=== PATIENT | female | born 1970 | race Caucasian/White ===

== ENCOUNTER 2017-03-19 10:39 | Emergency (ER) | payer OTHER ==
[2017-03-19] MEDS ORDERED: IV NORMAL SALINE 1,000ML 1,000 ML IV SCH (11:08)
[2017-03-19] MEDS ORDERED: IOHEXOL 300 MG/ML 75 ML VIAL. IV ONE ×2 (11:15→11:30)
[2017-03-19 11:27] LABS: BASO % 0 % (0-3); EOS # 0.2 x10^3/uL (0.0-0.7); EOS % 2 % (0-3); HEMATOCRIT 36.4 % (36.0-47.0); HEMOGLOBIN 12.4 g/dL (12.0-15.5); LYMPH # 1.2 x10^3/uL (1.0-4.8); LYMPH % 10 % (24-48); MEAN CORPUSCULAR HEMOGLOBIN 31 pg (25-35); MEAN CORPUSCULAR HGB CONC 34 g/dL (31-37); MEAN CORPUSCULAR VOLUME 90 fL (79-100); MONO # 1.2 x10^3/uL (0.0-1.1); MONO % 10 % (0-9); NEUT # 9.3 x10^3uL (1.8-7.7); NEUT % 78 % (31-73); PLATELET COUNT 195 x10^3/uL (140-400); RED BLOOD COUNT 4.04 x10^6/uL (3.50-5.40); RED CELL DISTRIBUTION WIDTH 13.7 % (11.5-14.5); WHITE BLOOD COUNT 11.9 x10^3/uL (4.0-11.0)
[2017-03-19] MEDS ORDERED: IV NORMAL SALINE 50ML 50 ML ONE (11:33)
[2017-03-19] MEDS ORDERED: cefTRIAXone SODIUM 1 GM VIAL IV ONE (11:34)
[2017-03-19 11:43] LABS: ALBUMIN 3.5 g/dL (3.4-5.0); ALBUMIN/GLOBULIN RATIO 0.8 (1.0-1.7); CALCIUM 9.2 mg/dL (8.5-10.1); CREATININE 0.8 mg/dL (0.6-1.0); GFR 76.9; POTASSIUM 3.2 mmol/L (3.5-5.1); TOTAL BILIRUBIN 0.3 mg/dL (0.2-1.0)
[2017-03-19] MEDS ORDERED: methylPREDNISolone SOD SUCC PF 125 MG/2 ML VIAL. IV ONE (11:45)
[2017-03-19 12:15] VITALS: BP 156/74
[2017-03-19] MEDS ORDERED: KETOROLAC 30 MG/ML VIAL. IV ONE (12:15)
--- NOTE | 2017-03-19 12:26 | RAD ---
Indication: Right facial cellulitis with concern for abscess. Technique: Axial images and coronal and sagittal reformatted images are provided. 75 mL of intravenous Omnipaque 300 was administered without complication. No comparison is available. One or more of the following individualized dose reduction techniques were utilized for this examination: 1. Automated exposure control 2. Adjustment of the mA and/or kV according to patient size 3. Use of iterative reconstruction technique Findings: There is soft tissue stranding throughout the superficial space on the right with thickening of the platysma. There is no rim-enhancing fluid collection. There is more focal stranding anterior to the right maxilla which could represent phlegmonous change. There is no gross bone destruction. There is no definite preseptal extension. There is no orbital extension. There is right maxillary mild mucosal thickening. There is no maxillofacial fracture. Impression: 1. Right facial cellulitis. No abscess is apparent although there is a potential area of phlegmonous change anterior to the right maxilla. There is no gross bone destruction or orbital extension.
--- NOTE | 2017-03-19 12:55 | PHYS DOC ---
Past History Past Medical History: Anxiety, High Cholesterol, Hypertension Past Surgical History: Appendectomy, Cervical Fusion, Hysterectomy, Other Alcohol Use: None Drug Use: None Adult General Chief Complaint Chief Complaint: DENTAL PROBLEM HPI HPI 46-year-old female patient states she had right upper jaw and dental pain that started 5 days ago and for the last 4 days she had right-sided facial edema and erythema. Patient states she was seen at [facility] 3 days ago and with the dentist the same day and treated with clindamycin and penicillin and pain medication but her swelling is not getting better and she wanted to get a second opinion. Patient complaining of subjective fever and increasing pain with chewing and talking. Patient has appointment with oral surgeon tomorrow. She denies focal neuro deficit, vomiting and diarrhea, smoking. Review of Systems Review of Systems Constitutional: Denies fever or chills [] Eyes: Denies change in visual acuity, redness, or eye pain [] HENT: Denies nasal congestion or sore throat [] Respiratory: Denies cough or shortness of breath [] Cardiovascular: No additional information not addressed in HPI [] GI: Denies abdominal pain, nausea, vomiting, bloody stools or diarrhea [] : Denies dysuria or hematuria [] Musculoskeletal: Denies back pain or joint pain [] Integument: Denies rash or skin lesions [] Neurologic: Denies headache, focal weakness or sensory changes [] Endocrine: Denies polyuria or polydipsia [] All other systems were reviewed and found to be within normal limits, except as documented in this note. Current Medications Current Medications Current Medications Medications (Trade) Dose Ordered Sig/Estiven Start Time Stop Time Status Last Admin Dose Admin Ceftriaxone Sodium 1 gm/ Sodium Chloride 50 ml @ 100 mls/hr 1X ONCE 03/19/17 11:45 03/19/17 12:14 DC 03/19/17 11:43 100 MLS/HR Ceftriaxone Sodium (Rocephin) 1 gm STK-MED ONCE 03/19/17 11:34 03/19/17 11:35 DC Iohexol (Omnipaque 300 Mg/ml) 75 ml 1X ONCE 03/19/17 11:30 03/19/17 11:31 DC 03/19/17 12:10 75 ML Ketorolac Tromethamine (Toradol) 30 mg 1X ONCE 03/19/17 12:15 03/19/17 12:16 DC 12/13/17 12:00 30 MG Methylprednisolone Sodium Succinate (SOLU-Medrol 125MG VIAL) 125 mg 1X ONCE 03/19/17 11:45 03/19/17 11:46 DC 03/19/17 11:42 125 MG Sodium Chloride 50 ml @ As Directed STK-MED ONCE 03/19/17 11:33 03/19/17 11:34 DC Allergies Allergies Allergies Coded Allergies Type Severity Reaction Last Updated Verified Latex, Natural Rubber Allergy Unknown 04/26/15 Yes Physical Exam Physical Exam Constitutional: Well developed, well nourished, mild distress, non-toxic appearance. [] HENT: Normocephalic, atraumatic, bilateral external ears normal, oropharynx moist, no oral exudates, nose normal, right facial and preorbital erythema and edema and mild tenderness, right upper jaw and molar #3 tenderness and abscess Neck: Normal range of motion, no tenderness, supple, no stridor. [] Cardiovascular:Heart rate regular rhythm, no murmur [] Lungs & Thorax: Bilateral breath sounds clear to auscultation [] Abdomen: Bowel sounds normal, soft, no tenderness, no masses, no pulsatile masses. [] Skin: Warm, dry, no erythema, no rash. [] Back: No tenderness, no CVA tenderness. [] Extremities: No tenderness, no cyanosis, no clubbing, ROM intact, no edema. [] Neurologic: Alert and oriented X 3, normal motor function, normal sensory function, no focal deficits noted. [] Psychologic: Affect normal, judgement normal, mood normal. [] Current Patient Data Vital Signs Vital Signs Date Time Temp Pulse Resp B/P (MAP) Pulse Ox O2 Delivery O2 Flow Rate FiO2 03/19/17 12:15 85 20 95 03/19/17 10:39 100.2 Room Air Lab Results Laboratory Tests Test 03/19/17 11:15 White Blood Count 11.9 x10^3/uL (4.0-11.0) H Red Blood Count 4.04 x10^6/uL (3.50-5.40) Hemoglobin 12.4 g/dL (12.0-15.5) Hematocrit 36.4 % (36.0-47.0) Mean Corpuscular Volume 90 fL (79-100) Mean Corpuscular Hemoglobin 31 pg (25-35) Mean Corpuscular Hemoglobin Concent 34 g/dL (31-37) Red Cell Distribution Width 13.7 % (11.5-14.5) Platelet Count 195 x10^3/uL (140-400) Neutrophils (%) (Auto) 78 % (31-73) H Lymphocytes (%) (Auto) 10 % (24-48) L Monocytes (%) (Auto) 10 % (0-9) H Eosinophils (%) (Auto) 2 % (0-3) Basophils (%) (Auto) 0 % (0-3) Neutrophils # (Auto) 9.3 x10^3uL (1.8-7.7) H Lymphocytes # (Auto) 1.2 x10^3/uL (1.0-4.8) Monocytes # (Auto) 1.2 x10^3/uL (0.0-1.1) H Eosinophils # (Auto) 0.2 x10^3/uL (0.0-0.7) Basophils # (Auto) 0.0 x10^3/uL (0.0-0.2) Prothrombin Time 10.0 SEC (9.4-11.4) Prothrombin Time INR 1.0 (0.9-1.1) Sodium Level 138 mmol/L (136-145) Potassium Level 3.2 mmol/L (3.5-5.1) L Chloride Level 98 mmol/L (98-107) Carbon Dioxide Level 30 mmol/L (21-32) Anion Gap 10 (6-14) Blood Urea Nitrogen 10 mg/dL (7-20) Creatinine 0.8 mg/dL (0.6-1.0) Estimated GFR (Cockcroft-Gault) 76.9 BUN/Creatinine Ratio 13 (6-20) Glucose Level 184 mg/dL (70-99) H Lactic Acid Level 1.3 mmol/L (0.4-2.0) Calcium Level 9.2 mg/dL (8.5-10.1) Total Bilirubin 0.3 mg/dL (0.2-1.0) Aspartate Amino Transferase (AST) 29 U/L (15-37) Alanine Aminotransferase (ALT) 45 U/L (14-59) Alkaline Phosphatase 106 U/L (46-116) Total Protein 8.0 g/dL (6.4-8.2) Albumin 3.5 g/dL (3.4-5.0) Albumin/Globulin Ratio 0.8 (1.0-1.7) L EKG EKG [] Radiology/Procedures Radiology/Procedures [] Course & Med Decision Making Course & Med Decision Making Pertinent Labs and Imaging studies reviewed. (See chart for details) Evaluation of patient in ER showed 46-year-old female patient with dental abscess and facial cellulitis with unremarkable CT of face and labs except for potassium of 3.2. She and treated with IV fluids, Solu-Medrol, Toradol and Rocephin and felt better. Patient struck to follow up with her appointment with oral surgeon tomorrow and continue home medication. [] Dragon Disclaimer Dragon Disclaimer This electronic medical record was generated, in whole or in part, using a voice recognition dictation system. Departure Departure: Impression: Primary Impression: Facial cellulitis Additional Impressions: Dental abscess Hypokalemia Uncontrolled diabetes mellitus Disposition: 01 HOME, SELF-CARE (At 1253) Condition: IMPROVED Referrals: LAL[facility] (PCP) Patient Instructions: Dental Abscess, Hypokalemia, Periorbital Cellulitis Additional Instructions: Continue her current home medication Follow-up with your dentist appointment tomorrow Problem Qualifiers MARIBELL NOLAN MD Mar 19, 2017 12:54
== END 2017-03-19 13:00 | disposition home or self-care (01) ==
LOC: ER 10:39
DX: K04.7 Periapical abscess without sinus (principal); L03.211 Cellulitis of face; E87.6 Hypokalemia; E11.9 Type 2 diabetes mellitus without complications; E78.00 Pure hypercholesterolemia, unspecified; I10 Essential (primary) hypertension; F41.9 Anxiety disorder, unspecified; Z91.040 Latex allergy status
CPT/HCPCS: 36415; 70487; 80053; 83605; 85025; 85610; 96365; 96375; 99285; J0696; J1885; J2930; Q9967; J7030

== ENCOUNTER 2017-05-20 21:08 | Emergency (ER) | payer OTHER ==
[~2017-05-20] VITALS: Ht 160 cm; Wt 83.9 kg
--- NOTE | 2017-05-20 21:12 | ED.ADGEN ---
Past History Past Medical History: Anxiety, High Cholesterol, Hypertension Past Surgical History: Appendectomy, Cervical Fusion, Hysterectomy, Other Alcohol Use: None Drug Use: None Adult General Chief Complaint Chief Complaint ".. I got bad cold ... I ve had it weeks now.. I was seen at [facility].. the checked the flu.. and it was negative... but did not check a strept...." HPI HPI Patient is a 46 year old female who presents with above hx and complaints of myalgia, arthralgia, pharyngitis, malaise and coughing. No recent travel. No specific ill contacts. Normally follows at [facility]. Was checked for fluid [facility] which was reportedly negative. Review of Systems Review of Systems Constitutional: Complaints of fever or chills [] Eyes: Denies change in visual acuity, redness, or eye pain [] HENT: Complaints of nasal congestion and sore throat [] Respiratory: Complaints cough and wheezing Cardiovascular: No additional information not addressed in HPI [] GI: Denies abdominal pain, nausea, vomiting, bloody stools or diarrhea [] : Denies dysuria or hematuria [] Musculoskeletal: Denies back pain or joint pain [] Integument: Denies rash or skin lesions [] Neurologic: Denies headache, focal weakness or sensory changes [] Endocrine: Denies polyuria or polydipsia [] All other systems were reviewed and found to be within normal limits, except as documented in this note. Family History Family History Noncontributory Current Medications Current Medications Current Medications Medications (Trade) Dose Ordered Sig/Estiven Start Time Stop Time Status Last Admin Dose Admin Albuterol Sulfate (Ventolin Hfa) 2 puff 1X ONCE 05/20/17 22:30 05/20/17 22:31 DC 05/20/17 22:30 2 PUFF Prednisone (Prednisone) 50 mg 1X ONCE 05/20/17 22:15 05/20/17 22:16 DC 05/20/17 22:35 50 MG See nursing for home meds Allergies Allergies Allergies Coded Allergies Type Severity Reaction Last Updated Verified Latex, Natural Rubber Allergy Unknown 04/26/15 Yes Physical Exam Physical Exam Constitutional: no acute distress, non-toxic appearance. [] HENT: Normocephalic, atraumatic, bilateral external ears normal, oropharynx moist, active pharynx, no oral exudates, nose swollen turbinates and rhinorrhea Eyes: PERRLA, EOMI, conjunctiva normal, no discharge. [] Neck: Normal range of motion, no tenderness, supple, no stridor. Surgical scar Cardiovascular:Heart rate regular rhythm, no murmur [] Lungs & Thorax: Bilateral breath sounds equal few scattered wheezes on auscultation [] Abdomen: Bowel sounds normal, soft, no tenderness, no masses, no pulsatile masses. [Obese. Old surgical scars Skin: Warm, dry, no erythema, no rash. [] Back: No tenderness, no CVA tenderness. [] Extremities: No tenderness, no cyanosis, no clubbing, ROM intact, no edema. [] Neurologic: Alert and oriented X 3, normal motor function, normal sensory function, no focal deficits noted. [] Psychologic: Affect anxious, judgement normal, mood normal. [] Current Patient Data Vital Signs Vital Signs Date Time Temp Pulse Resp B/P (MAP) Pulse Ox O2 Delivery O2 Flow Rate FiO2 05/20/17 23:06 80 18 145/78 (100) 98 Room Air 05/20/17 21:13 98.4 Lab Results Laboratory Tests Test 05/20/17 21:47 Influenza Type A (Rapid) Negative (NEGATIVE) Influenza Type B (Rapid) Negative (NEGATIVE) Group A Streptococcus Rapid Negative (NEGATIVE) EKG EKG [] Radiology/Procedures Radiology/Procedures My interpretation of chest x-ray shows no large pulmonary infiltrate. There is mild cephalization. She does have findings of previous cervical surgery fixation.[] Course & Med Decision Making Course & Med Decision Making Pertinent Labs and Imaging studies reviewed. (See chart for details). Push fruit juices and fluids. Take [id number] Tylenol and ibuprofen for discomfort. For marked discomfort may take Vicoprofen up 4 times a day. Take prednisone 50 mg a day for 5 days. Use MDI 2 puffs 4 times a day. Benadryl 25- 50 mg 4 times a day as needed for congestion and drainage [] Final Impression Final Impression 1. Viral Syndrome[] 2. Bronchitis Problems: Dragon Disclaimer Dragon Disclaimer This electronic medical record was generated, in whole or in part, using a voice recognition dictation system. TOMY MUNOZ MD May 20, 2017 21:12
[2017-05-20] MEDS ORDERED: predniSONE 10 MG TABLET PO ONE (22:15)
[2017-05-20] MEDS ORDERED: ALBUTEROL SULFATE 8GM INHALER. INH ONE (22:30)
[2017-05-20 22:54] LABS: INFLUENZA A PATIENT NEGATIVE (NEGATIVE); INFLUENZA B PATIENT NEGATIVE (NEGATIVE)
[2017-05-20] MEDS ORDERED: ACET500T68 PO (22:59)
[2017-05-20] MEDS ORDERED: HYDR-79 PO (22:59)
[2017-05-20] MEDS ORDERED: ONDA8TAB12 PO (22:59)
[2017-05-20] MEDS ORDERED: PRED50TA PO (22:59)
[2017-05-20] MEDS ORDERED: DIPH25CA58 PO (22:59)
[2017-05-20 23:06] VITALS: BP 145/78
--- NOTE | 2017-05-21 08:06 | RAD ---
2 views of the Chest 05/20/2017 11:34 PM Indication: cough, fever Comparison: None Findings: There is no focal consolidation or infiltrate identified. There is no effusion or pneumothorax. The cardiomediastinal silhouette and pulmonary vasculature are within normal limits. No osseous abnormality is identified. Cervical fusion noted. Impression: No evidence of acute cardiopulmonary process.
== END 2017-05-20 23:07 | disposition home or self-care (01) ==
LOC: ER 21:08
DX: B34.9 Viral infection, unspecified (principal); J40 Bronchitis, not specified as acute or chronic; E78.00 Pure hypercholesterolemia, unspecified; I10 Essential (primary) hypertension; F41.9 Anxiety disorder, unspecified; Z91.040 Latex allergy status
CPT/HCPCS: 71046; 87070; 87804; 87880; 94640; 99285; J7512; J7613; 94664